=== PATIENT | female | born 1955 | race African-American/Black ===

== ENCOUNTER → 2017-06-26 | Outpatient (CLI) | payer MEDICARE | END | disposition home or self-care (01) | LOC: ECHO 12:54 | DX: I51.7 Cardiomegaly (principal); I27.0 Primary pulmonary hypertension | CPT/HCPCS: 93306 ==

== ENCOUNTER → 2018-04-02 | Outpatient (CLI) | payer MEDICARE, MEDICAID ==
[2016-11-28 10:36] VITALS: BP 117/63
[~2018-04-02] MED LIST: ACET500T68 PO; ALBU2.5V5 NEB; AMLO10TA6 PO; AMLO1CAP12 PO; ATOR10TA60 PO; BENA20TA4 PO; CITA20TA9 PO; DEXT15DR5 EACHEYE; DRON5CAP2 PO; FURO-68 PO; FURO-69 PO; FURO40TA4 PO; GABA-586 PO; GABA600T2 PO; GLIP10TA13 PO; GLIP5TAB10 PO; GUAI118L13 PO; GUAI600T47 PO; INSU100I13 SQ; INSU100I17 SQ; INSU100V13 SQ; LEVO750T31 PO; LOVA10TA PO; MAGN400O7 PO; METF100010 PO; METF500T9 PO; METH-364 PO; METO25TA4 PO; NYST15CR2 TP; ONDA4TAB10 PO; PANT40TA5 PO; POLY15DR20 OP; PRED20TA PO; PRED5DRO16 EACHEYE; PROP40TA PO; TOBR5DRO6 OD; TOLT4CAP12 PO; TRAM50TA PO; WARF-31 PO; WARF3TAB54 PO; ZOLP5TAB5 PO
--- NOTE | 2018-04-02 15:59 | RAD ---
DATE: 04/02/2018 EXAM: MAMMO REJI SCREENING BILATERAL HISTORY: Screening mammogram. COMPARISON: There is mammogram from 2014 This study was interpreted with the benefit of Computerized Aided Detection (CAD). FINDINGS: Breast Density: SCATTERED The breast parenchyma shows scattered fibroglandular densities. Breast parenchyma level B. The skin and nipples are within normal limits. No suspicious calcifications, spiculated masses or areas of architectural distortion. IMPRESSION: No mammographic evidence of malignancy. BI-RADS CATEGORY: 2 BENIGN FINDING(S) RECOMMENDED FOLLOW-UP: 12M 12 MONTH FOLLOW-UP PQRS compliance statement: Patient information was entered into a reminder system with a target due date for the next mammogram. Mammography is a sensitive method for finding small breast cancers, but it does not detect them all and is not a substitute for careful clinical examination. A negative mammogram does not negate a clinically suspicious finding and should not result in delay in biopsying a clinically suspicious abnormality. "Our facility is accredited by the [employer]ammography [employer]."
== END | disposition home or self-care (01) ==
LOC: MAMMO 12:56
PROVIDERS: ATTEND Nurse Practitioner Family
DX: Z12.31 Encounter for screening mammogram for malignant neoplasm of breast (principal)
CPT/HCPCS: 77063; 77067

== ENCOUNTER 2018-05-11 10:48 | Emergency (ER) | payer MEDICAID, MEDICARE ==
[~2018-05-11] VITALS: Ht 160 cm; Wt 68.5 kg
[~2018-05-11 10:48] MED LIST changes: -GABA-586 PO; +GABA300C18 PO
--- NOTE | 2018-05-11 11:11 | PHYS DOC ---
Past Medical History Past Medical History: A-Fib, CHF, Diabetes-Type II, DVT, Hypertension, Other Additional Past Medical Histor: CHRONIC RESPIRATORY FAILURE,HYPOXIA,HYPERCAPNIA ,NEOPLASM OF COLON. Past Surgical History: Other Additional Past Surgical Histo: cateract surgery on L eye Alcohol Use: None Drug Use: None Adult General Chief Complaint Chief Complaint: HEAD INJURY/TRAUMA HPI HPI Patient is a 62 year old who presents after fall this morning. Patient takes warfarin. Patient notes this morning after getting up from sleep while sitting on the toilet and fell forward striking her head on the ground. Patient notes she has since had a generalized headache and bilateral neck pain. Patient denies any nausea, vomiting, ataxia, altered mental status, vision changes, or auditory symptoms. Patient denies any chest pain, shortness of breath, palpitations, dizziness, lightheadedness, or syncope. Reports some bruising to forehead. Denies other injury. Review of Systems Review of Systems Constitutional: Denies fever or chills [] Eyes: Denies change in visual acuity, redness, or eye pain [] HENT: Denies nasal congestion or sore throat [] Respiratory: Denies cough or shortness of breath [] Cardiovascular: Denies chest pain or palpitations[] GI: Denies abdominal pain, nausea, vomiting, or diarrhea [] : Denies dysuria or hematuria [] Musculoskeletal: Denies back pain or joint pain [] Integument: Denies rash; ecchymosis, swelling, and abrasion to right forehead [] Neurologic: Notes headache. Denies focal weakness or sensory changes [] Complete systems were reviewed and found to be within normal limits, except as documented in this note. Current Medications Current Medications Current Medications Medications (Trade) Dose Ordered Sig/Lino Start Time Stop Time Status Last Admin Dose Admin Fentanyl Citrate (Fentanyl 2ml Vial) 50 mcg 1X ONCE 05/11/18 11:15 05/11/18 11:16 DC 05/11/18 11:48 50 MCG Oxycodone/ Acetaminophen (Percocet 5/325) 0.5 tab 1X ONCE 05/11/18 13:00 05/11/18 13:01 DC 05/11/18 13:05 0.5 TAB Allergies Allergies Allergies Coded Allergies Type Severity Reaction Last Updated Verified Penicillins Allergy Intermediate SEE COMMENTS 06/02/16 Yes Sulfa (Sulfonamide Antibiotics) Allergy Intermediate 06/01/16 Yes clindamycin Allergy Intermediate 06/01/16 Yes hydrocodone Allergy Intermediate 06/01/16 Yes morphine Allergy Intermediate 06/01/16 Yes tramadol Adverse Reaction Mild Anxiety 06/03/16 Yes Physical Exam Physical Exam Constitutional: Well developed, well nourished, no acute distress, non-toxic appearance. [] HENT: Abrasion with surrounding ecchymoses to right anterior forehead. Bilateral TMs normal, oropharynx moist, nose normal. [] Eyes: PERRL, EOMI, conjunctiva normal, no discharge. [] Neck: Normal range of motion, no midline tenderness. Right paraspinal tenderness. Supple. [] Cardiovascular:Heart rate regular rhythm, no murmur [] Lungs & Thorax: Bilateral breath sounds clear to auscultation [] Abdomen: Soft, nondistended, no tenderness. [] Skin: Warm, dry, no erythema, no rash. [] Back: No tenderness, no CVA tenderness. [] Extremities: No tenderness, ROM intact, no edema. [] Neurologic: Alert and oriented X 3, normal motor function, normal sensory function, no focal deficits noted. [] Psychologic: Affect normal, judgement normal, mood normal. [] Current Patient Data Vital Signs Vital Signs Date Time Temp Pulse Resp B/P (MAP) Pulse Ox O2 Delivery O2 Flow Rate FiO2 05/11/18 13:05 16 99 Room Air 05/11/18 13:00 64 158/70 (99) 05/11/18 11:08 98.0 98.0 Lab Values Laboratory Tests Test 05/11/18 11:50 05/11/18 12:15 White Blood Count 8.0 x10^3/uL (4.0-11.0) Red Blood Count 4.78 x10^6/uL (3.50-5.40) Hemoglobin 11.3 g/dL (12.0-15.5) L Hematocrit 35.4 % (36.0-47.0) L Mean Corpuscular Volume 74 fL (79-100) L Mean Corpuscular Hemoglobin 24 pg (25-35) L Mean Corpuscular Hemoglobin Concent 32 g/dL (31-37) Red Cell Distribution Width 14.8 % (11.5-14.5) H Platelet Count 196 x10^3/uL (140-400) Neutrophils (%) (Auto) 78 % (31-73) H Lymphocytes (%) (Auto) 14 % (24-48) L Monocytes (%) (Auto) 6 % (0-9) Eosinophils (%) (Auto) 2 % (0-3) Basophils (%) (Auto) 1 % (0-3) Neutrophils # (Auto) 6.3 x10^3uL (1.8-7.7) Lymphocytes # (Auto) 1.1 x10^3/uL (1.0-4.8) Monocytes # (Auto) 0.4 x10^3/uL (0.0-1.1) Eosinophils # (Auto) 0.2 x10^3/uL (0.0-0.7) Basophils # (Auto) 0.0 x10^3/uL (0.0-0.2) Prothrombin Time 21.5 SEC (11.7-14.0) H Prothrombin Time INR 1.9 (0.8-1.1) H Laboratory Tests 05/11/18 11:50 EKG EKG [] Radiology/Procedures Radiology/Procedures []PROCEDURE: CT HEAD AND CERVICAL SPINE WO CT head without contrast. CT cervical spine without contrast TECHNIQUE: Noncontrast CT imaging of the head and cervical spine with multiplanar reconstructions was acquired. PQRS statement: CT scans at this facility use dose reduction including either automated exposure control, iterative reconstructions, and /or weight based radiation dosing via mA and kV modification when appropriate to reduce radiation dose to as low as reasonably achievable. HISTORY: Fall, head pain, neck pain. CT head findings: No intracranial hemorrhage, mass, hydrocephalus, extra-axial fluid collections or cerebral cortical infarction. No acute ischemic change. There is a 2 cm linear hypodensity at the right lentiform nucleus basal ganglia image 12-13 typical of a chronic infarct. Very mild right frontal scalp soft tissue swelling and scalp hematoma. Orbits, mastoids, paranasal sinuses and bones are unremarkable. IMPRESSION: No acute intracranial CT abnormality. Mild frontal scalp soft tissue swelling. CT cervical spine findings: Craniocervical junction intact. Cervical vertebral body height and alignment intact. No fracture of the cervical spine. Cervical carotid calcified plaque. Disc height loss at C5-C6. Scattered probable soft disc bulges, uncovertebral spurs and facet spurs, as well as C5-C6 disc osteophyte, with multilevel neural foraminal stenoses, and probable spinal canal stenosis at C5-C6. IMPRESSION: No acute osseous injury of the cervical spine. Cervical disc disease as described above. Electronically signed by: Paresh Wright MD (05/11/2018 12:30 PM) [facility] Course & Med Decision Making Course & Med Decision Making 62-year-old female presenting after falling asleep on the toilet and falling forward striking her head on the ground. Patient takes warfarin. Abrasions and ecchymosis/swelling to right forehead noted. Patient otherwise uninjured. CT head and neck obtained and without acute process. Pain addressed. INR 1.9. Patient denies any syncope, chest pain, palpitations, dizziness, lightheadedness. Patient stable for discharge with outpatient follow-up with PCP. Discussed findings and plan with patient, who acknowledges understanding and agreement. [] Dragon Disclaimer Dragon Disclaimer This electronic medical record was generated, in whole or in part, using a voice recognition dictation system. Departure Departure Impression: Primary Impression: Fall Additional Impression: Head contusion Disposition: 01 HOME, SELF-CARE Condition: STABLE Referrals: AZALEA LOVING MD (PCP) Patient Instructions: Facial or Scalp Contusion, [id number], Fall Prevention and Home Safety, [id number] Additional Instructions: INR today was 1.9, continue to take medication as prescribed. Scripts Oxycodone/Apap 5-325 (PERCOCET 5-325 MG TABLET ) 1 Each Tablet 0.5 TAB PO PRN Q8HRS PRN for PAIN, #6 TAB 0 Refills Prov: CRUZ BURNS DO 05/11/18 Problem Qualifiers Primary Impression: Fall Encounter type: initial encounter Qualified Codes: W19.XXXA - Unspecified fall, initial encounter Additional Impression: Head contusion Encounter type: initial encounter Contusion of head detail: other part of head Qualified Codes: S00.83XA - Contusion of other part of head, initial encounter CRUZ BURNS DO May 11, 2018 11:11
[2018-05-11] MEDS ORDERED: fentaNYL PF VIAL 100 MCG/2 ML VIAL IV ONE (11:15)
[2018-05-11 11:56] LABS: BASO % 1 % (0-3); EOS # 0.2 x10^3/uL (0.0-0.7); EOS % 2 % (0-3); HEMATOCRIT 35.4 % (36.0-47.0); HEMOGLOBIN 11.3 g/dL (12.0-15.5); LYMPH # 1.1 x10^3/uL (1.0-4.8); LYMPH % 14 % (24-48); MEAN CORPUSCULAR HEMOGLOBIN 24 pg (25-35); MEAN CORPUSCULAR HGB CONC 32 g/dL (31-37); MEAN CORPUSCULAR VOLUME 74 fL (79-100); MONO # 0.4 x10^3/uL (0.0-1.1); MONO % 6 % (0-9); NEUT # 6.3 x10^3uL (1.8-7.7); NEUT % 78 % (31-73); PLATELET COUNT 196 x10^3/uL (140-400); RED BLOOD COUNT 4.78 x10^6/uL (3.50-5.40); RED CELL DISTRIBUTION WIDTH 14.8 % (11.5-14.5)
--- NOTE | 2018-05-11 12:33 | RAD ---
CT head without contrast. CT cervical spine without contrast TECHNIQUE: Noncontrast CT imaging of the head and cervical spine with multiplanar reconstructions was acquired. PQRS statement: CT scans at this facility use dose reduction including either automated exposure control, iterative reconstructions, and /or weight based radiation dosing via mA and kV modification when appropriate to reduce radiation dose to as low as reasonably achievable. HISTORY: Fall, head pain, neck pain. CT head findings: No intracranial hemorrhage, mass, hydrocephalus, extra-axial fluid collections or cerebral cortical infarction. No acute ischemic change. There is a 2 cm linear hypodensity at the right lentiform nucleus basal ganglia image 12-13 typical of a chronic infarct. Very mild right frontal scalp soft tissue swelling and scalp hematoma. Orbits, mastoids, paranasal sinuses and bones are unremarkable. IMPRESSION: No acute intracranial CT abnormality. Mild frontal scalp soft tissue swelling. CT cervical spine findings: Craniocervical junction intact. Cervical vertebral body height and alignment intact. No fracture of the cervical spine. Cervical carotid calcified plaque. Disc height loss at C5-C6. Scattered probable soft disc bulges, uncovertebral spurs and facet spurs, as well as C5-C6 disc osteophyte, with multilevel neural foraminal stenoses, and probable spinal canal stenosis at C5-C6. IMPRESSION: No acute osseous injury of the cervical spine. Cervical disc disease as described above. Electronically signed by: Paresh Wright MD (05/11/2018 12:30 PM) [facility]
[2018-05-11 12:38] LABS: PROTHROMBIN TIME PATIENT 21.5 SEC (11.7-14.0)
[2018-05-11 13:00] VITALS: BP 158/70
[2018-05-11] MEDS ORDERED: oxyCODONE/APAP 5/325 1 TAB TABLET PO ONE (13:00)
[2018-05-11] MEDS ORDERED: OXYC1TAB15 PO (13:00)
== END 2018-05-11 13:48 | disposition home or self-care (01) ==
LOC: ER 10:48
DX: S00.83XA Contusion of other part of head, initial encounter (principal); M54.2 Cervicalgia; I48.91 Unspecified atrial fibrillation; I11.0 Hypertensive heart disease with heart failure; I50.9 Heart failure, unspecified; E11.9 Type 2 diabetes mellitus without complications; Z88.0 Allergy status to penicillin; Z86.718 Personal history of other venous thrombosis and embolism; Z88.1 Allergy status to other antibiotic agents; Z88.2 Allergy status to sulfonamides; Z88.5 Allergy status to narcotic agent; Z88.6 Allergy status to analgesic agent; W18.09XA Striking against other object with subsequent fall, initial encounter; Y93.89 Activity, other specified; Y92.89 Other specified places as the place of occurrence of the external cause; Y99.8 Other external cause status
CPT/HCPCS: 36415; 70450; 72125; 85025; 85610; 96374; 99284; J3010

== ENCOUNTER → 2019-02-06 | Outpatient (CLI) | payer MEDICAID, MEDICARE ==
[~2019-02-06] MED LIST changes: -AMLO10TA6 PO; +AMLO10TA8 PO; -AMLO1CAP12 PO; +AMLO1CAP13 PO; -GABA600T2 PO; +GABA600T7 PO; +METF500T11 PO; -METF500T9 PO; +OXYC1TAB15 PO; -PANT40TA5 PO; +PANT40TA77 PO
--- NOTE | 2019-02-06 13:08 | CARD ---
MR#: [id number] Date of Study: 02/06/2019 Ordering Physician: ZOE CUNHA, Referring Physician: ZOE CUNHA, Tech: Majo Peña [facility] APPROVED REPORT EXAM: Two-dimensional and M-mode echocardiogram with Doppler and color Doppler. Other Information Quality : Good INDICATION Congestive Heart Failure 2D DIMENSIONS RVDd2.3 (2.9-3.5cm)Left Atrium(2D)3.9 (1.6-4.0cm) IVSd0.9 (0.7-1.1cm)Aortic Root(2D)2.4 (2.0-3.7cm) LVDd4.4 (3.9-5.9cm)LVOT Diameter1.9 (1.8-2.4cm) PWd0.9 (0.7-1.1cm)LVDs2.5 (2.5-4.0cm) FS (%) 30.0 %SV64.1 ml LVEF(%)60.0 (>50%) Aortic Valve AoV Peak Etienne.204.2cm/sAoV VTI41.5cm AO Peak GR.16.7mmHgLVOT Peak Etienne.105.5cm/s AO Mean GR.9mmHgAVA (VMAX)1.40cm2 [place] (VTI)1.60cm2 Mitral Valve MV E Cstzzquf307.7cm/sMV DECEL [id number] MV A Pvjxxhiz32.7cm/sE/A Ratio1.1 Tricuspid Valve TR P. Lcllpwjn487ad/sRAP [id number] TR Peak Gr.04xaZuXXAQ33zaUe Pulmonary Vein S1 Pqupgxei89.9cm/sD2 Mfwndyce30.1cm/s LEFT VENTRICLE The left ventricle is normal size. There is mild concentric left ventricular hypertrophy. The left ve ntricular systolic function is normal and the ejection fraction is within normal range. The Ejection Fraction is 55-60%. There is normal LV segmental wall motion. The left ventricular diastolic function and filling is normal for age. RIGHT VENTRICLE The right ventricle is normal size. The right ventricular systolic function is normal. ATRIA The left atrium size is normal. The right atrium size is normal. The interatrial septum is intact wit h no evidence for an atrial septal defect or patent foramen ovale as noted on 2-D or Doppler imaging. AORTIC VALVE The aortic valve is calcified and displays decreased opening. Doppler and Color Flow revealed trace a ortic regurgitation. There is no significant aortic valvular stenosis. MITRAL VALVE The mitral valve is calcified but opens well. There is no evidence of mitral valve prolapse. There is no mitral valve stenosis. Doppler and Color-flow revealed trace mitral regurgitation. TRICUSPID VALVE The tricuspid valve is normal in structure and function. Doppler and Color Flow revealed trace tricus pid regurgitation. The PA pressure was estimated at 34 mmHg. There is no tricuspid valve stenosis. PULMONIC VALVE The pulmonic valve is not well visualized. Doppler and Color Flow revealed trace pulmonic valvular re gurgitation. There is no pulmonic valvular stenosis. GREAT VESSELS The aortic root is normal in size. The ascending aorta is normal in size. The IVC is normal in size a nd collapses >50% with inspiration. PERICARDIAL EFFUSION There is no evidence of significant pericardial effusion. Critical Notification Critical Value: No <Conclusion> The left ventricle is normal size. The left ventricular systolic function is normal and the ejection fraction is within normal range. The Ejection Fraction is 55-60%. There is mild concentric left ventricular hypertrophy. There is no significant aortic valvular stenosis. Doppler and Color Flow revealed trace aortic regurgitation. Doppler and Color-flow revealed trace mitral regurgitation. Doppler and Color Flow revealed trace tricuspid regurgitation. The PA pressure was estimated at 34 mmHg. Signed by : Lenin Newman MD Electronically Approved : 02/06/2019 11:48:51
== END | disposition home or self-care (01) ==
LOC: ECHO 10:53
PROVIDERS: ATTEND Internal Medicine Cardiovascular Disease
DX: I50.30 Unspecified diastolic (congestive) heart failure (principal); I51.7 Cardiomegaly
CPT/HCPCS: 93306

== ENCOUNTER → 2019-05-23 | Outpatient (CLI) | payer MEDICARE ==
--- NOTE | 2019-05-23 15:25 | RAD ---
CT of the chest without contrast 05/23/2019 INDICATION: Pulmonary infiltrates. COMPARISON STUDY: CT of the chest without contrast November 23, 2016. TECHNIQUE: Multidetector CT imaging of the chest was performed without contrast. FINDINGS: Heart size is normal. No pericardial effusion is seen. Dense coronary calcification noted. Multiple calcified and noncalcified mediastinal lymph nodes are seen. Evaluation of these lymph nodes is limited without IV contrast. Densely calcified lymph nodes are seen in the right hilar region. No pneumothorax is seen. No pleural effusion is identified. Basilar predominant groundglass opacities in a somewhat mosaic type pattern are identified. Multiple pulmonary nodular opacities are seen. The dense infiltrate in the upper lobes has resolved in the interim. Scattered pulmonary nodules are noted. Reference nodules include a a nodule along the major fissure on the left measuring 6 mm in diameter. Allowing for differences in slice selection and technique this is grossly similar in the interim. There is a somewhat spiculated appearing nodule in the right lung base measuring 1 cm in diameter. Adjacent smaller nodule can be seen measuring 6 mm (reference images #41 and 44). There is another nodule noted in the apical left upper lobe measuring 1 cm in diameter (axial image 21) is also similar to prior study. Limited visualization of the upper abdomen demonstrates no acute changes. No acute bony changes are seen. IMPRESSION: 1. The bulk of the upper lobe consolidation seen on prior CT scan have resolved. 2. There are lower lobe predominant groundglass opacities with a somewhat mosaic-like. Appearance. Multiple calcified and noncalcified pulmonary nodules are seen. The visualized noncalcified nodules appear to be grossly similar with respect to comparison study. Mediastinal adenopathy including bulky calcified adenopathy in the right hilum and mediastinum. Consider chronic lung disease is such as chronic hypersensitivity pneumonitis,, or even given the lower lung predilection UIP. 3. CT surveillance to ensure 2 years of nodular stability recommended. CT DOSING PQRS STATEMENT: One or more of the following individualized dose reduction techniques were utilized for this examination: 1. Automated exposure control 2. Adjustment of the mA and/or kV according to patient size 3. Use of iterative reconstruction technique Electronically signed by: Mynor Walker MD (05/23/2019 3:22 PM) [id number]
== END | disposition home or self-care (01) ==
LOC: CT 15:23
PROVIDERS: ATTEND Internal Medicine Critical Care Medicine
DX: I25.10 Atherosclerotic heart disease of native coronary artery without angina pectoris (principal); R91.8 Other nonspecific abnormal finding of lung field; R59.0 Localized enlarged lymph nodes
CPT/HCPCS: 71250

== ENCOUNTER → 2020-02-25 | Outpatient (CLI) | payer MEDICARE ==
[~2020-02-25] MED LIST changes: +METF-658 PO; -METF500T11 PO
--- NOTE | 2020-02-25 16:02 | RAD ---
EXAM: CHEST PA LATERAL 02/25/2020 12:00 AM CLINICAL INDICATION:Interstitial lung disease COMPARISON:CT chest 05/23/2019. No prior chest radiograph is are available for comparison. TECHNIQUE:PA and lateral views of the chest FINDINGS:There are patchy bilateral opacities, greatest in the mid and lower lungs. This may be slightly increased from prior CT, although difficult to evaluate due to differences in modality. There are scattered subtle linear nodular opacities. Mild elevation of right hemidiaphragm and bilateral pleural thickening is unchanged. No pleural effusion or pneumothorax. The heart is normal in size. Bilateral hilar fullness correlates with calcified granulomas on CT. No acute osseous abnormality. IMPRESSION:Bilateral pulmonary opacities, greatest in the mid and lower lobes. This is similar to or slightly increased from prior CT. Comparison with prior radiographs would be useful Electronically signed by: Francia Addison MD (02/25/2020 3:59 PM) [id number]
== END | disposition home or self-care (01) ==
LOC: RAD 12:09
PROVIDERS: ATTEND Internal Medicine Critical Care Medicine
DX: J84.9 Interstitial pulmonary disease, unspecified (principal)
CPT/HCPCS: 71046

== ENCOUNTER → 2020-04-01 | Outpatient (CLI) | payer MEDICARE ==
[~2020-04-01] MED LIST changes: +AMLO-187 PO; -AMLO10TA8 PO
--- NOTE | 2020-04-01 17:43 | RAD ---
DATE: 04/01/2020 3:00 PM EXAM: MAMMO REJI SCREENING BILATERAL HISTORY: Screening COMPARISON: 04/02/2018 Bilateral CC and MLO views of the breasts were performed. Bilateral breast tomosynthesis was performed in CC and MLO projections. This study was interpreted with the benefit of Computerized Aided Detection (CAD). FINDINGS: Breast Density: SCATTERED The breast parenchyma shows scattered fibroglandular densities. Breast parenchyma level B No suspicious masses, microcalcifications or architectural distortion is present to suggest malignancy in either breast. The visualized axillae are unremarkable. IMPRESSION: No mammographic evidence of malignancy. BI-RADS CATEGORY: 1 NEGATIVE RECOMMENDED FOLLOW-UP: 12M 12 MONTH FOLLOW-UP Annual screening mammography is recommended, unless clinically indicated sooner based on symptoms or change in physical exam. PQRS compliance statement: Patient information was entered into a reminder system with a target due date for the next mammogram. Mammography is a sensitive method for finding small breast cancers, but it does not detect them all and is not a substitute for careful clinical examination. A negative mammogram does not negate a clinically suspicious finding and should not result in delay in biopsying a clinically suspicious abnormality. "Our facility is accredited by the [employer] Mammography Program."
== END ==
LOC: MAMMO 14:55
PROVIDERS: ATTEND Family Medicine
DX: Z12.31 Encounter for screening mammogram for malignant neoplasm of breast (principal)
CPT/HCPCS: 77063; 77067

== ENCOUNTER → 2020-05-20 | Outpatient (CLI) | payer MEDICARE ==
--- NOTE | 2020-05-20 17:54 | RAD ---
Examination: XR CHEST 2V History: Reason: Short of breath, HX of Lung Operation / Spl. Instructions: / History: Comparison/Correlation: 02/25/2020 Findings: Frontal and lateral views of chest were obtained. Heart size normal. No pneumothorax. Inter stitial thickening at the lung bases noted. Minimal left basilar infiltrate noted. Right costophrenic angle blunting interstitial infiltrates of the lung phillips especially at the right lung base again s een. No definite pleural effusion on the lateral view. Impression: No significant change. Electronically signed by: Beau Pickard MD (05/20/2020 5:52 PM) [id number]
== END ==
LOC: RAD 16:32
PROVIDERS: ATTEND Internal Medicine Critical Care Medicine
DX: J84.9 Interstitial pulmonary disease, unspecified (principal); Z90.2 Acquired absence of lung [part of]
CPT/HCPCS: 71046

== ENCOUNTER → 2020-07-22 | Outpatient (CLI) | payer MEDICARE ==
--- NOTE | 2020-07-22 16:56 | RAD ---
EXAM: CHEST 2 VIEWS. HISTORY: Interstitial lung disease. COMPARISON: 05/20/2020. FINDINGS: Frontal and lateral views of the chest are obtained. Blunting of the right costophrenic angle is stable chronically. Bibasilar interstitial and airspace o pacities are not clearly changed. There is no pneumothorax or pleural effusion. The heart is not enla rged. There are atherosclerotic calcifications of the aorta. IMPRESSION: 1. No clear interval change in bilateral basilar predominant interstitial and airspace infiltrates, w ith scarring in the right costophrenic angle. Electronically signed by: Janna Florence MD (07/22/2020 4:53 PM) [id number]
== END ==
LOC: RAD 14:02
PROVIDERS: ATTEND Internal Medicine Critical Care Medicine
DX: I70.0 Atherosclerosis of aorta (principal); J98.4 Other disorders of lung; J84.9 Interstitial pulmonary disease, unspecified
CPT/HCPCS: 71046

== ENCOUNTER → 2020-10-14 | Outpatient (CLI) | payer MEDICARE ==
--- NOTE | 2020-10-15 14:32 | CARD ---
MR#: [id number] Date of Study: 10/14/2020 Ordering Physician: CHESTER CUNHA, Referring Physician: CHESTER CUNHA, Tech: APPROVED REPORT EXAM: Two-dimensional and M-mode echocardiogram with Doppler and color Doppler. Other Information Quality : Good INDICATION Pulmonary Hypertention 2D DIMENSIONS RVDd2.6 (2.9-3.5cm)Left Atrium(2D)3.3 (1.6-4.0cm) IVSd1.0 (0.7-1.1cm)Aortic Root(2D)2.3 (2.0-3.7cm) LVDd4.4 (3.9-5.9cm)LVOT Diameter2.0 (1.8-2.4cm) PWd0.9 (0.7-1.1cm)LVDs2.3 (2.5-4.0cm) FS (%) 30.0 %SV70.0 ml LVEF(%)60.0 (>50%) M-Mode DIMENSIONS Aortic Cusp Exc1.62 (1.5-2.0cm) Aortic Valve AoV Peak Etienne.188.2cm/sAoV VTI42.4cm AO Peak GR.14.2mmHgLVOT Peak Etienne.94.1cm/s LVOT VTI 24.74cmAO Mean GR.8mmHg [place] (VMAX)1.72sx5BUM (VTI)1.85cm2 Mitral Valve MV E Tjcdttfu02.1cm/sMV DECEL [id number] MV A Uqhrkhtv36.8cm/sMV CAB60dd E/A Ratio1.0MVA (PHT)3.71cm2 TDI E/Lateral E'12.0E/Medial E'17.5 Tricuspid Valve TR P. Ngbokzvi103fi/sRAP VRBLDOIP9ifGo TR Peak Gr.66amXqLHGI16nyAo Pulmonary Vein S1 Nvupsilk75.9cm/sD2 Quukuhgp47.0cm/s LEFT VENTRICLE The left ventricle is normal size. There is normal left ventricular wall thickness. The left ventricu lar systolic function is normal and the ejection fraction is within normal range. The Ejection Fracti on is 60-65%. There is normal LV segmental wall motion. Transmitral Doppler flow pattern is Grade I-a bnormal relaxation pattern. RIGHT VENTRICLE The right ventricle is normal size. The right ventricular systolic function is normal. ATRIA The left atrium size is normal. The right atrium size is normal. The interatrial septum is intact wit h no evidence for an atrial septal defect or patent foramen ovale as noted on 2-D or Doppler imaging. AORTIC VALVE The aortic valve is moderately thickened and calcified but opens well. Doppler and Color Flow reveale d trace aortic regurgitation. Calculated aortic valve area is 1.98 cm2 with maximum pressure gradient of 14 mmHg and mean pressure gradient of 8 mmHg. MITRAL VALVE The mitral valve is mildly thickened. Mitral annular calcification is mild. There is no evidence of m itral valve prolapse. There is no mitral valve stenosis. Doppler and Color-flow revealed trace mitral regurgitation. TRICUSPID VALVE The tricuspid valve is normal in structure and function. Doppler and Color Flow revealed physiologica l tricuspid regurgitation. The PA pressure was estimated at 19 mmHg. There is no tricuspid valve sten osis. PULMONIC VALVE The pulmonic valve is not well visualized. Doppler and Color Flow revealed trace pulmonic valvular re gurgitation. There is no pulmonic valvular stenosis. GREAT VESSELS The aortic root is normal in size. The ascending aorta is normal in size. The IVC is normal in size a nd collapses >50% with inspiration. PERICARDIAL EFFUSION There is no evidence of significant pericardial effusion. Critical Notification Critical Value: No <Conclusion> The left ventricular systolic function is normal and the ejection fraction is within normal range. Th e Ejection Fraction is 60-65%. There is normal LV segmental wall motion. Signed by : Chester Cunha, Electronically Approved : 10/15/2020 14:32:38
== END ==
LOC: ECHO 12:44
PROVIDERS: ATTEND Internal Medicine Cardiovascular Disease
DX: I08.3 Combined rheumatic disorders of mitral, aortic and tricuspid valves (principal); I27.0 Primary pulmonary hypertension
CPT/HCPCS: 93306

== ENCOUNTER → 2020-10-14 | Outpatient (CLI) | payer MEDICARE ==
--- NOTE | 2020-10-14 15:54 | RAD ---
INDICATION: Reason: ILD - INTERSTITIAL LUNG DISEASE. / Spl. Instructions: / History: COMPARISON: July 22, 2020 FINDINGS: 2 view of chest obtained. Cardiac silhouette is unremarkable except calcific atherosclerosis. Blunting of the right costophrenic angle is again seen. Linear opacities at the left lung base again seen. Interstitial and groundglass opacities again seen and similar to prior. Degenerative changes of the spine. IMPRESSION: * Repeat demonstration of interstitial and groundglass opacities throughout the bilateral lungs whic h is similar in severity compared to prior exams and can be seen with chronic interstitial lung disea se. Electronically signed by: Ramo Renteria MD (10/14/2020 3:51 PM) [id number]
== END ==
LOC: RAD 13:41
PROVIDERS: ATTEND Internal Medicine Critical Care Medicine
DX: J84.9 Interstitial pulmonary disease, unspecified (principal)
CPT/HCPCS: 71046

== ENCOUNTER → 2021-04-19 | Outpatient (CLI) | payer MEDICARE ==
[~2021-04-19] MED LIST changes: -BENA20TA4 PO; +BENA20TA84 PO; -METH-364 PO; +METH10TA32 PO; -TOLT4CAP12 PO; +TOLT4CAP26 PO
--- NOTE | 2021-04-19 17:25 | RAD ---
Bilateral digital screening 2-D and 3-D (digital breast tomosynthesis) mammogram: Reason for examination: Routine screening. Comparison: Mammograms from 04/01/2020 and 04/02/2018. Interpretation was made with the benefit of CAD. FINDINGS: Breast density: Category B. There are scattered areas of fibroglandular density. No suspicious breast mass, malignant appearing calcifications, or architectural distortion is seen. IMPRESSION: No evidence of malignancy. Assessment: BI-RADS 1. Negative. Recommendation: Routine screening mammograms. The patient will receive a letter with the results in the mail. Patient information will be entered i nto the mammography reminder system with a target recall date for the next mammogram. A reminder regina er will be generated. Electronically signed by: Berna Santos MD (04/19/2021 5:23 PM) [id number]
== END ==
LOC: MAMMO 11:21
PROVIDERS: ATTEND Family Medicine
DX: Z12.31 Encounter for screening mammogram for malignant neoplasm of breast (principal)
CPT/HCPCS: 77063; 77067

== ENCOUNTER → 2021-05-31 | Outpatient (CLI) | payer MEDICARE ==
--- NOTE | 2021-05-31 15:54 | RAD ---
EXAM: Chest, 2 views. HISTORY: COPD. Cough. COMPARISON: 10/14/2020 FINDINGS: 2 views of the chest are obtained. There is stable blunting of the right costophrenic angle . There is diffuse central predominant interstitial infiltrate. There is no pneumothorax. The heart i s normal in size. There is stable right hilar prominence. IMPRESSION: 1. Stable blunting of the right costophrenic angle likely due to pleural thickening/scarring. 2. Diffuse central predominant interstitial infiltrate. 3. Stable right hilar prominence. This may be due to lymphadenopathy or prominent central pulmonary v essels. Electronically signed by: Claudine Monroe MD (05/31/2021 3:52 PM) [email or web address]
== END ==
LOC: RAD 13:50
PROVIDERS: ATTEND Internal Medicine Critical Care Medicine
DX: J84.89 Other specified interstitial pulmonary diseases (principal); J44.9 Chronic obstructive pulmonary disease, unspecified; R05.9 Cough, unspecified
CPT/HCPCS: 71046

== ENCOUNTER 2021-09-15 16:29 | Emergency (ER) | payer MEDICARE ==
[~2021-09-15] VITALS: Ht 160 cm; Wt 69.4 kg
--- NOTE | 2021-09-15 17:16 | RAD ---
Right knee 3 views. HISTORY: Pain 3 views were taken of the right knee. There is not evidence of a fracture or osseous abnormality. The re is no definite joint effusion. There is mild vascular calcification. There is nonspecific soft tis juan calcification in the anterior thigh. IMPRESSION: 1. No fracture or acute osseous abnormality right knee. Electronically signed by: Celio Cadet MD (09/15/2021 5:14 PM) [facility]
[2021-09-15 17:37] VITALS: BP 154/57
--- NOTE | 2021-09-15 17:42 | PHYS DOC ---
Past Medical History Past Medical History: A-Fib, CHF, Diabetes-Type II, DVT, Hypertension, Other Additional Past Medical Histor: CHRONIC RESPIRATORY FAILURE,HYPOXIA,HYPERCAPNIA,NEOPLASM OF COLON. Past Surgical History: Colectomy, Hysterectomy, Other Additional Past Surgical Histo: cateract surgery on L eye, RIGHT LOBECTOMY Smoking Status: Current Some Day Smoker Alcohol Use: None Drug Use: None General Adult EDM: Chief Complaint: LOWER EXT PAIN HPI: HPI: Patient is a 66 year old female presenting to the ED today complaining of 7 out of 10 sharp intermittent right knee pain, symptoms of been going on intermittently for 2 weeks. Patient states symptoms are worse on ambulation. Denies anything specifically relieving the symptoms. Denies any injuries. Review of Systems: Review of Systems: Constitutional: Denies fever or chills. [] Musculoskeletal: Reports right knee pain Integument: Denies rash. [] Neurologic: Denies headache, focal weakness or sensory changes. [] Psychiatric: Denies depression or anxiety. [] Heart Score: C/O Chest Pain: N/A Risk Factors: Risk Factors: DM, Current or recent (<one month) smoker, HTN, HLP, family history of CAD, obesity. Risk Scores: Score 0 - 3: 2.5% MACE over next 6 weeks - Discharge Home Score 4 - 6: 20.3% MACE over next 6 weeks - Admit for Clinical Observation Score 7 - 10: 72.7% MACE over next 6 weeks - Early Invasive Strategies Allergies: Allergies: Allergies Coded Allergies Type Severity Reaction Last Updated Verified Penicillins Allergy Intermediate SEE COMMENTS 06/02/16 Yes Sulfa (Sulfonamide Antibiotics) Allergy Intermediate 06/01/16 Yes clindamycin Allergy Intermediate 06/01/16 Yes hydrocodone Allergy Intermediate 06/01/16 Yes morphine Allergy Intermediate 06/01/16 Yes tramadol Adverse Reaction Mild Anxiety 06/03/16 Yes Physical Exam: PE: Constitutional: Well developed, well nourished, no acute distress, non-toxic appearance. [] Skin: Warm, dry, no erythema, no rash. [] Back: No tenderness, no CVA tenderness. [] Extremities: Right knee with no obvious deformity, no erythema, no warmth, no tenderness on exam. Full range of motion to the right knee the patient complained of pain during range of motion. Negative Todd sign, negative Gary sign, negative anterior posterior drawer sign. Negative Homans' sign. +2 right pedal pulse. Cap refill less than 2 seconds to right lower extremity Neurologic: Alert and oriented X 3, normal motor function, normal sensory function, no focal deficits noted. [] Psychologic: Affect normal, judgement normal, mood normal. [] Current Patient Data: Vital Signs: Vital Signs Date Time Temp Pulse Resp B/P (MAP) Pulse Ox O2 Delivery O2 Flow Rate FiO2 09/15/21 16:32 97.9 20 108/85 (93) 97 Room Air 97.9 EKG: EKG: [] Radiology/Procedures: Radiology/Procedures: []PROCEDURE: KNEE RIGHT 4V Right knee 3 views. HISTORY: Pain 3 views were taken of the right knee. There is not evidence of a fracture or osseous abnormality. There is no definite joint effusion. There is mild vascular calcification. There is nonspecific soft tissue calcification in the anterior thigh. IMPRESSION: 1. No fracture or acute osseous abnormality right knee. Electronically signed by: Celio Cadet MD (09/15/2021 5:14 PM) [facility] DICTATED and SIGNED BY: CELIO CADET MD DATE: 09/15/211712 Course & Med Decision Making: Course & Med Decision Making pertinent Labs and Imaging studies reviewed. (See chart for details) This a 66-year-old female patient presented to the ED today with right knee pain that began 2 weeks ago, no known injury. Right knee x-rays interpreted by radiologist are negative for any acute findings, ice elevation encouraged. [place] wrap applied to the rest of the knee by me, neurovascular exam done by me is normal. f/u with Ortho in one week Dragon Disclaimer: Anita Disclaimer: This electronic medical record was generated, in whole or in part, using a voice recognition dictation system. Departure Departure Impression: Primary Impression: Right knee pain Qualified Codes: M25.561 - Pain in right knee Disposition: 01 HOME / SELF CARE / HOMELESS Condition: STABLE Referrals: LAURA QUIROZ MD (PCP) HILARY STAHL Jr. DO follow up in one week if pain persist Patient Instructions: Knee Pain, Vkkg-wi-Rnik Additional Instructions: You were seen for right knee pain, your right knee x-rays are negative for any acute findings. Wear the [place] bandage provided as tolerated. Try to ice and elevate the extremity. Take the prescribed medications as needed, follow-up with the orthopedic doctor on the provided doctor in 1 to 2 weeks Scripts Gabapentin (GABAPENTIN ) 300 Mg Capsule 300 MG PO TID for NEUROGENIC PAIN, #30 CAP Prov: JANA CROW APRN 09/15/21 Lidocaine (Lidocaine) 1 Each Adh..patch 1 EACH TP DAILY PRN for PAIN, #10 PATCH Prov: JANA CROW APRN 09/15/21 JANA CROW APRN Sep 15, 2021 17:42
[2021-09-15] MEDS ORDERED: LIDO1ADH63 TP ×2 (17:47→18:06)
[2021-09-15] MEDS ORDERED: GABA300C18 PO ×2 (17:47→18:06)
[2021-09-15] MEDS ORDERED: LIDOCAINE (700MG/PATCH) PATCH. TD ONE (18:15)
[2021-09-15] MEDS ORDERED: GABAPENTIN 300 MG CAPSULE. PO ONE (18:15)
== END 2021-09-15 18:00 | disposition home or self-care (01) ==
LOC: ER 16:29
DX: M25.561 Pain in right knee (principal); I11.0 Hypertensive heart disease with heart failure; I50.9 Heart failure, unspecified; E11.9 Type 2 diabetes mellitus without complications; I48.91 Unspecified atrial fibrillation; G89.29 Other chronic pain; Z86.718 Personal history of other venous thrombosis and embolism; F17.200 Nicotine dependence, unspecified, uncomplicated; Z88.0 Allergy status to penicillin; Z88.1 Allergy status to other antibiotic agents; Z88.2 Allergy status to sulfonamides; Z88.5 Allergy status to narcotic agent; Z88.6 Allergy status to analgesic agent
CPT/HCPCS: 73564; 99283